=== PATIENT | female | born 1955 | race Caucasian/White ===

== ENCOUNTER → 2018-09-22 | Outpatient (CLI) | payer BC ==
[~2018-09-22] MED LIST: ATOR-2 PO; CLOP75TA52 PO; ESTR0.5T PO; LEVO75TA PO; TELM40TA PO; VENL37.57 PO
[2018-09-22 12:08] LABS: ALBUMIN 4.6 g/dL (3.4-5.0); ANION GAP 6 mmol/L (5-15); CALCIUM 9.1 mg/dL (8.5-10.1); CHLORIDE 107 mmol/L (98-107)
[2018-09-22 12:12] LABS: ALANINE AMINOTRANSFERASE 30 U/L (12-78); ALKALINE PHOSPHATASE 114 U/L (45-117); CREATININE 0.94 mg/dL (0.55-1.02); TOTAL PROTEIN 8.3 g/dL (6.4-8.2)
== END | disposition home or self-care (01) ==
LOC: STAR 10:57
PROVIDERS: ATTEND Orthopaedic Surgery
DX: Z01.818 Encounter for other preprocedural examination (principal); M77.41 Metatarsalgia, right foot; M79.671 Pain in right foot
CPT/HCPCS: 36415; 80053; 93005

== ENCOUNTER 2018-10-01 08:49 | Day surgery (SDC) | payer BC ==
[~2018-10-01] VITALS: Ht 165.1 cm; Wt 63.5 kg
[2018-10-01] MEDS ORDERED: LACTATED RINGERS 1,000 ML IV SCH (09:17)
[2018-10-01 09:46] VITALS: BP 136/87
[2018-10-01] MEDS ORDERED: TURM500C7 PO (09:58)
[2018-10-01] MEDS ORDERED: MULT-308 PO (09:58)
[2018-10-01] MEDS ORDERED: ASCO10004 PO (09:58)
[2018-10-01] MEDS ORDERED: UBID100C41 PO (09:58)
[2018-10-01] MEDS ORDERED: VITA1TAB19 PO (09:58)
[2018-10-01] MEDS ORDERED: KRIL1CAP5 PO (09:58)
[2018-10-01] MEDS ORDERED: MIDAZOLAM 1 MG/ML, 2ML ONE (10:36)
[2018-10-01] MEDS ORDERED: FENTANYL PF 100 MCG/2ML ONE (10:36)
[2018-10-01] MEDS ORDERED: CEFAZOLIN 1,000 MG ONE (12:05)
[2018-10-01] MEDS ORDERED: ONDANSETRON 2MG/ML, 2ML ONE (12:05)
[2018-10-01] MEDS ORDERED: LIDOCAINE-MPF 2% ,5ML ONE (12:05)
[2018-10-01] MEDS ORDERED: DEXAMETHASONE 4 MG/ML, 1ML ONE (12:05)
[2018-10-01] MEDS ORDERED: PROPOFOL 10 MG/ML, 20ML ONE (12:05)
[2018-10-01] MEDS ORDERED: KETOROLAC 30 MG/1 ML ONE (12:05)
[2018-10-01] MEDS ORDERED: BUPIVACAINE/PF 0.25% ONE (12:05)
[2018-10-01] MEDS ORDERED: PROMETHAZINE 25 MG/ML, 1ML IV PRN (12:30)
[2018-10-01] MEDS ORDERED: OXYcodone 5 MG/5 ML ORAL.SOL UDC PO PRN (12:30)
[2018-10-01] MEDS ORDERED: ACETAMINOPHEN 325 MG TABLET PO PRN (12:30)
[2018-10-01] MEDS ORDERED: MEPERIDINE/PF 25MG/0.5ML IVPush PRN (12:30)
[2018-10-01] MEDS ORDERED: SCOPOLAMINE PATCH, 1.5MG PATCH.TD72 TD PRN (12:30)
[2018-10-01] MEDS ORDERED: HYDROmorphone 2 MG/ML, 1ML IVPush PRN (12:30)
[2018-10-01] MEDS ORDERED: ONDANSETRON 2MG/ML, 2ML IV PRN (12:30)
[2018-10-01] MEDS ORDERED: FENTANYL PF 100 MCG/2ML IV PRN (12:30)
[2018-10-01] MEDS ORDERED: MIDAZOLAM 1 MG/ML, 2ML IV PRN (12:30)
== END 2018-10-01 14:55 | disposition home or self-care (01) ==
LOC: OUT 08:49
PROVIDERS: ATTEND Orthopaedic Surgery
DX: G57.61 Lesion of plantar nerve, right lower limb (principal); M25.871 Other specified joint disorders, right ankle and foot; I25.10 Atherosclerotic heart disease of native coronary artery without angina pectoris; I25.2 Old myocardial infarction; E78.5 Hyperlipidemia, unspecified; E03.9 Hypothyroidism, unspecified; Z88.1 Allergy status to other antibiotic agents; Z87.891 Personal history of nicotine dependence; Z72.89 Other problems related to lifestyle
CPT/HCPCS: 28080; 28308; 88304; C1713; J0690; J1100; J1885; J2250; J2405; J2704; J3010; J3490; J7120